=== PATIENT | male | born 2000 | race Caucasian/White ===

== ENCOUNTER → 2018-11-02 10:27 | Outpatient (CLI) | payer BC, SELFPAY ==
[2018-11-02 13:07] LABS: AST(SGOT) 27 U/L (15-37); Alanine Aminotransfer ALT/SGPT 50 U/L (16-61); Cholesterol 225 mg/dL (200); High Density Lipoprotein 67 mg/dL; Triglycerides 76 mg/dL; Very Low Density Lipoprotein 15 mg/dL (5-40)
[2018-11-05 13:43] LABS: LDL, Direct 120295 161 mg/dL (0-99)
== END ==
PROVIDERS: Family Provider Family Medicine; PCP Family Medicine; Referring Provider Dermatology; Visit Provider Dermatology
DX: Z79.899 Other long term (current) drug therapy (principal); L70.0 Acne vulgaris; L23.3 Allergic contact dermatitis due to drugs in contact with skin; L91.0 Hypertrophic scar
CPT/HCPCS: 36415; 80061; 83721; 84450; 84460

== ENCOUNTER → 2024-10-23 | Outpatient (CLI) | payer OTHER, SELFPAY ==
--- NOTE | 2024-10-23 15:37 | RAD_ITS ---
PROCEDURE: ABDOMEN SINGLE VIEW 10/23/2024 REASON FOR EXAM: LLQ TECHNIQUE: Single view abdomen. COMPARISON: None. FINDINGS: No excess stool burden is seen. The bowel-gas pattern is unremarkable. No mass or mass effect is noted. RAD/Abdomen Single View IMPRESSION: Unremarkable bowel-gas pattern Reading Location: [id number]
[2024-10-23 17:44] LABS: Hematocrit 46.4 % (40-54); Hemoglobin 16.7 g/dL (13.0-16.5); Mean Corpuscular Volume 83.3 fL (80-94); Mean Platelet Vol. 9.7 fl (6.2-12.0); Platelet Count 354 K/mm3 (150-450); RBC Distribution Width CV 12.3 % (11.6-14.6); RBC Distribution Width SD 36.9 fl (35.1-43.9); Red Blood Count 5.57 M/mm3 (4.6-6.2); White Blood Count 7.1 K/mm3 (4.4-11.0)
[2024-10-23 19:03] LABS: ALB/GLOB Ratio 1.8 RATIO (0.9-2.4); AST(SGOT) 21 U/L (<=37); Alanine Aminotransfer ALT/SGPT 26 U/L (<=46); Alkaline Phosphatase 80 U/L (40-129); Anion Gap 15 (5-15); BUN 11 mg/dL (4-19); BUN/Creat Ratio 9.7 RATIO (10-20); Calcium,Total 10.1 mg/dL (7.6-11.0); Carbon Dioxide 23.5 mmol/L (21.0-32.0); Chloride 102 mmol/L (98-108); Creatinine, Serum 1.14 mg/dL (0.70-1.20); EST Glomerular Filtration Rate 91 (>60); Globulin 2.8 g/dL (2.2-4.2); Glucose 91 mg/dL (70-99); Protein, Total 7.9 g/dL (5.9-8.4); Sodium Level 141 mmol/L (133-145); Total Bilirubin 0.82 mg/dL (0.00-1.30)
[2024-10-23 19:06] LABS: CRP < 3.00 mg/L (0.0-3.0)
== END | disposition home or self-care (01) ==
PROVIDERS: PCP Family Medicine
DX: R10.9 Unspecified abdominal pain (principal)
CPT/HCPCS: 36415; 74018; 80053; 85027; 86140